=== PATIENT | female | born 1975 | race Caucasian/White ===

== ENCOUNTER 2019-05-24 09:13 | Day surgery (SDC) | payer OTHER ==
[2019-05-24] MEDS ORDERED: Xylocaine 1% Vial 30 ML PF IJ ONE (09:14)
[2019-05-24] MEDS ORDERED: Decadron 4 MG INJ IV ONE (09:14)
[2019-05-24] MEDS ORDERED: Ketamine HCl 50 MG/ML ONE (10:35)
[2019-05-24] MEDS ORDERED: DIPRIVAN 200 MG/20 ML IV ONE (10:35)
--- NOTE | 2019-05-24 12:14 | XRAY ---
Indication: Right piriformis injection. Intraoperative fluoroscopy was provided for 17 seconds. Single digital spot image submitted for interpretation demonstrates needle tip projecting over the expected right piriformis. Small amount of contrast injected for needle tip placement. Correlate with intraoperative findings/report.
--- NOTE | 2019-05-24 12:18 | XRAY ---
17 seconds fluoroscopy time in surgery for right piriformis injection.
[2019-05-24] MEDS ORDERED: Lactated Ringers 1,000 ML IV ONE (12:49)
== END 2019-05-24 11:00 | disposition home or self-care (01) ==
LOC: SDC-PAIN 09:13
PROVIDERS: ATTEND Psychiatry & Neurology Pain Medicine
DX: M79.18 Myalgia, other site (principal); I10 Essential (primary) hypertension; F41.8 Other specified anxiety disorders; Z79.899 Other long term (current) drug therapy
CPT/HCPCS: 20552; 72020; 77002; 84703; J1100; J2001; J2704; Q9966

== ENCOUNTER 2019-12-20 11:54 | Day surgery (SDC) | payer OTHER ==
[2019-12-20] MEDS ORDERED: Decadron 4 MG INJ IV ONE (11:55)
[2019-12-20] MEDS ORDERED: Xylocaine 1% Vial 30 ML PF IJ ONE (11:55)
[2019-12-20] MEDS ORDERED: DIPRIVAN 200 MG/20 ML IV ONE (13:11)
[2019-12-20] MEDS ORDERED: Ketamine HCl 50 MG/ML ONE (13:11)
[2019-12-20] MEDS ORDERED: Lactated Ringers 1,000 ML IV ONE (13:50)
--- NOTE | 2019-12-20 14:07 | XRAY ---
Indication: Bilateral piriformis injections. Intraoperative fluoroscopy was provided for 35 seconds. 3 digital spot images submitted for interpretation demonstrates posterior needle tip projecting over the expected left and right piriformis muscle. Small amount of contrast injected for both needle tip placement. Correlate with intraoperative findings/report. Incidental IUD.
--- NOTE | 2019-12-20 14:17 | XRAY ---
35 seconds fluoroscopy time in surgery for bilateral piriformis muscle injections.
== END 2019-12-20 13:42 | disposition home or self-care (01) ==
LOC: SDC-PAIN 11:54
PROVIDERS: ATTEND Psychiatry & Neurology Pain Medicine
DX: M79.18 Myalgia, other site (principal); I10 Essential (primary) hypertension; F41.8 Other specified anxiety disorders; Z79.899 Other long term (current) drug therapy
CPT/HCPCS: 20552; 72202; 77002; 84703; J1100; J2001; J2704; Q9966

== ENCOUNTER 2020-06-12 12:03 | Day surgery (SDC) | payer OTHER ==
[~2020-06-12 12:03] MED LIST: DIPRIVAN 200 MG/20 ML IV ONE; Ketamine HCl 50 MG/ML ONE
[2020-06-12] MEDS ORDERED: Depo-Medrol 40 MG/ML IM ONE (12:04)
[2020-06-12] MEDS ORDERED: BUPIVACAINE 0.5% VIAL IJ ONE (12:04)
--- NOTE | 2020-06-12 15:14 | XRAY ---
Indication: Bilateral L4-S1 MBB. Intraoperative fluoroscopy was provided for 8 seconds. Single digital spot image submitted for interpretation demonstrates posterior needle tips projecting over the expected left and right L4-S1 nerve roots. Correlate with intraoperative findings/report.
--- NOTE | 2020-06-12 15:26 | XRAY ---
8 seconds fluoroscopy time in surgery for bilateral L4-S1 MBB.
[2020-06-12] MEDS ORDERED: Lactated Ringers 1,000 ML IV ONE (16:50)
== END 2020-06-12 14:45 | disposition home or self-care (01) ==
LOC: SDC-PAIN 12:03
PROVIDERS: ATTEND Psychiatry & Neurology Pain Medicine
DX: M47.816 Spondylosis without myelopathy or radiculopathy, lumbar region (principal); I10 Essential (primary) hypertension; M35.2 Behcet's disease; F41.8 Other specified anxiety disorders; Z79.899 Other long term (current) drug therapy
CPT/HCPCS: 64493; 64494; 72020; 77002; 84703; J1030; J2704

== ENCOUNTER 2020-10-09 13:43 | Day surgery (SDC) | payer OTHER ==
[2020-10-09] MEDS ORDERED: XYLOCAINE-MPF 1% 5ML SDV IJ ONE (13:44)
[2020-10-09] MEDS ORDERED: Depo-Medrol 40 MG/ML IM ONE (13:44)
[2020-10-09] MEDS ORDERED: BUPIVACAINE 0.5% VIAL IJ ONE (13:44)
[2020-10-09] MEDS ORDERED: Ketamine HCl 50 MG/ML ONE (15:06)
[2020-10-09] MEDS ORDERED: DIPRIVAN 200 MG/20 ML IV ONE (15:06)
[2020-10-09] MEDS ORDERED: Lactated Ringers 1,000 ML IV ONE (16:37)
--- NOTE | 2020-10-09 16:50 | XRAY ---
34 seconds fluoroscopy time in surgery for right L4-S1 RFA.
--- NOTE | 2020-10-09 16:50 | XRAY ---
Indication: Right L4-S1 RFA. Intraoperative fluoroscopy provided for 34 seconds. 3 digital spot images submitted for interpretation demonstrate posterior needle tips projecting over the expected right L4-S1 nerve roots. Correlate with intraoperative findings/report.
== END 2020-10-09 15:42 | disposition home or self-care (01) ==
LOC: SDC-PAIN 13:43
PROVIDERS: ATTEND Psychiatry & Neurology Pain Medicine
DX: M47.816 Spondylosis without myelopathy or radiculopathy, lumbar region (principal); I10 Essential (primary) hypertension; F41.8 Other specified anxiety disorders; Z79.899 Other long term (current) drug therapy
CPT/HCPCS: 64635; 64636; 72100; 77002; 84703; J1030; J2704

== ENCOUNTER 2020-11-27 12:29 | Day surgery (SDC) | payer OTHER ==
[2020-11-27] MEDS ORDERED: Xylocaine 1% Vial 30 ML PF IJ ONE (12:30)
[2020-11-27] MEDS ORDERED: Depo-Medrol 40 MG/ML IM ONE (12:30)
[2020-11-27] MEDS ORDERED: BUPIVACAINE 0.5% VIAL IJ ONE (12:30)
[2020-11-27] MEDS ORDERED: DIPRIVAN 200 MG/20 ML IV ONE ×2 (14:31→14:38)
[2020-11-27] MEDS ORDERED: Lactated Ringers 1,000 ML IV ONE (16:13)
--- NOTE | 2020-11-27 16:37 | XRAY ---
Indication: Left L4-S1 RFA. Intraoperative fluoroscopy provided for 24 seconds. 4 digital spot images submitted for interpretation demonstrates posterior needle tips projecting over the expected left L4-S1 nerve roots. Correlate with intraoperative findings/report.
--- NOTE | 2020-11-27 16:48 | XRAY ---
24 seconds fluoroscopy time in surgery for left L4-S1 RFA.
== END 2020-11-27 15:06 | disposition home or self-care (01) ==
LOC: SDC-PAIN 12:29
PROVIDERS: ATTEND Psychiatry & Neurology Pain Medicine
DX: M47.817 Spondylosis without myelopathy or radiculopathy, lumbosacral region (principal); I10 Essential (primary) hypertension; F41.8 Other specified anxiety disorders; Z79.899 Other long term (current) drug therapy
CPT/HCPCS: 64635; 64636; 72100; 77002; 84703; J1030; J2001; J2704

== ENCOUNTER 2022-02-11 12:55 | Day surgery (SDC) | payer OTHER ==
[2022-02-11] MEDS ORDERED: XYLOCAINE-MPF 1% 5ML SDV IJ ONE (12:56)
[2022-02-11] MEDS ORDERED: Depo-Medrol 40 MG/ML IM ONE (12:56)
[2022-02-11] MEDS ORDERED: Marcaine Mpf 0.5% Vial 30 Ml IJ ONE (12:56)
[2022-02-11] MEDS ORDERED: DIPRIVAN 200 MG/20 ML IV ONE (14:26)
[2022-02-11] MEDS ORDERED: Lactated Ringers 1,000 ML IV ONE (15:59)
--- NOTE | 2022-02-12 18:31 | XRAY ---
27 seconds of fluoroscopy was used in surgery for a right L4-S1 RFA.
--- NOTE | 2022-02-13 21:28 | XRAY ---
Indication: Right L4-S1 RFA. Intraoperative fluoroscopy provided for 27 seconds. 3 digital spot images submitted for interpretation demonstrates posterior needle tips projecting over the expected right L4-S1 nerve roots. Correlate with intraoperative findings/report.
== END 2022-02-11 14:47 | disposition home or self-care (01) ==
LOC: SDC-PAIN 12:55
PROVIDERS: ATTEND Psychiatry & Neurology Pain Medicine
DX: M47.816 Spondylosis without myelopathy or radiculopathy, lumbar region (principal); E11.9 Type 2 diabetes mellitus without complications; Z79.899 Other long term (current) drug therapy
CPT/HCPCS: 64635; 64636; 72100; 77002; 81025; 82947; J1030; J2704

== ENCOUNTER 2022-02-18 12:57 | Day surgery (SDC) | payer OTHER ==
[2022-02-18] MEDS ORDERED: Marcaine Mpf 0.5% Vial 30 Ml IJ ONE (12:58)
[2022-02-18] MEDS ORDERED: XYLOCAINE-MPF 1% 5ML SDV IJ ONE (12:58)
[2022-02-18] MEDS ORDERED: Depo-Medrol 40 MG/ML IM ONE (12:58)
[2022-02-18] MEDS ORDERED: DIPRIVAN 200 MG/20 ML IV ONE ×2 (14:41→14:51)
[2022-02-18] MEDS ORDERED: Lactated Ringers 1,000 ML IV ONE (15:25)
--- NOTE | 2022-02-18 17:08 | XRAY ---
Indication: Left L4-S1 RFA. Intraoperative fluoroscopy provided for 26 seconds. 3 digital spot images submitted for interpretation demonstrate posterior needle tips projecting over the expected left L4-S1 nerve roots. Correlate with intraoperative findings/report.
--- NOTE | 2022-02-18 17:15 | XRAY ---
26 seconds of fluoroscopy was used in surgery for a left L4-S1 RFA.
== END 2022-02-18 15:12 | disposition home or self-care (01) ==
LOC: SDC-PAIN 12:57
PROVIDERS: ATTEND Psychiatry & Neurology Pain Medicine
DX: M47.816 Spondylosis without myelopathy or radiculopathy, lumbar region (principal); E11.9 Type 2 diabetes mellitus without complications; Z79.899 Other long term (current) drug therapy
CPT/HCPCS: 64635; 64636; 72100; 77002; 81025; 82947; J1030; J2704

== ENCOUNTER 2022-05-20 08:06 | Day surgery (SDC) | payer OTHER ==
[2022-05-20] MEDS ORDERED: Depo-Medrol 40 MG/ML IM ONE (08:07)
[2022-05-20] MEDS ORDERED: Marcaine Mpf 0.5% Vial 30 Ml IJ ONE (08:07)
[2022-05-20] MEDS ORDERED: DIPRIVAN 200 MG/20 ML IV ONE (09:36)
[2022-05-20] MEDS ORDERED: Lactated Ringers 1,000 ML IV ONE (10:17)
--- NOTE | 2022-05-20 11:26 | XRAY ---
Indication: Right hip and right greater trochanter bursa injections. Intraoperative fluoroscopy provided for 20 seconds. 2 digital spot image submitted for interpretation demonstrates needle tip projecting lateral to the right femur neck. Second needle tip lateral to the greater trochanter. Small amount of contrast injected for both needle tip placement. Correlate with intraoperative findings/report.
--- NOTE | 2022-05-20 13:23 | XRAY ---
20 seconds of fluoroscopy was used in surgery for a right hip greater trochanteric bursa and intra-articular injections.
== END 2022-05-20 10:00 | disposition home or self-care (01) ==
LOC: SDC-PAIN 08:06
PROVIDERS: ATTEND Psychiatry & Neurology Pain Medicine
DX: M16.11 Unilateral primary osteoarthritis, right hip (principal); M70.61 Trochanteric bursitis, right hip; E11.9 Type 2 diabetes mellitus without complications; Z79.899 Other long term (current) drug therapy
CPT/HCPCS: 20610; 73502; 77002; 81025; 82947; J1030; J2704

== ENCOUNTER 2022-09-09 13:18 | Day surgery (SDC) | payer OTHER ==
[2022-09-09] MEDS ORDERED: Decadron 4 MG INJ IV ONE (13:19)
[2022-09-09] MEDS ORDERED: LIDOCAINE HCL 1% 50 MG/5 ML VL PF IJ ONE (13:19)
[2022-09-09] MEDS ORDERED: Lactated Ringers 1,000 ML IV ONE (16:13)
--- NOTE | 2022-09-09 17:18 | XRAY ---
Indication: Right piriformis injection. Intraoperative fluoroscopy provided for 18 seconds. Single digital spot image submitted for interpretation demonstrates posterior needle tip projecting over the expected right piriformis muscle. Small amount of contrast injected for needle tip placement. Correlate with intraoperative findings/report.
--- NOTE | 2022-09-10 08:30 | XRAY ---
18 seconds of fluoroscopy was used in surgery for a right piriformis injection.
== END 2022-09-09 16:35 | disposition home or self-care (01) ==
LOC: SDC-PAIN 13:18
PROVIDERS: ATTEND Psychiatry & Neurology Pain Medicine
DX: M79.18 Myalgia, other site (principal); E11.9 Type 2 diabetes mellitus without complications; Z79.899 Other long term (current) drug therapy
CPT/HCPCS: 20552; 72170; 77002; 81025; 82947; J1100; J2001; Q9966

== ENCOUNTER 2023-06-03 07:50 | Day surgery (SDC) | payer OTHER ==
[2023-06-03] MEDS ORDERED: XYLOCAINE 1% HCL 20 ML MDV IJ ONE (07:51)
[2023-06-03] MEDS ORDERED: BUPIVACAINE 0.5% VIAL IJ ONE (07:51)
[2023-06-03] MEDS ORDERED: Depo-Medrol 40 MG/ML IM ONE (07:51)
[2023-06-03 08:03] LABS: HCG URINE TEST NEGATIVE (NEGATIVE)
[2023-06-03] MEDS ORDERED: DIPRIVAN 200 MG/20 ML IV ONE ×2 (09:04→09:13)
[2023-06-03] MEDS ORDERED: Lactated Ringers 1,000 ML IV ONE (09:17)
--- NOTE | 2023-06-03 10:58 | XRAY ---
Indication: Right L4-S1 RFA. Intraoperative fluoroscopy provided for 25 seconds. 5 digital spot images submitted for interpretation demonstrates posterior needle tips projecting over the expected right L4-S1 nerve roots. Correlate with intraoperative findings/report.
--- NOTE | 2023-06-03 12:33 | XRAY ---
25 seconds of fluoroscopy was used in surgery for a right L4-S1 RFA.
== END 2023-06-03 09:38 | disposition home or self-care (01) ==
LOC: SDC-PAIN 07:50
PROVIDERS: ATTEND Psychiatry & Neurology Pain Medicine
DX: M47.816 Spondylosis without myelopathy or radiculopathy, lumbar region (principal); E11.9 Type 2 diabetes mellitus without complications
CPT/HCPCS: 64635; 64636; 72100; 77002; 81025; 82947; J1030; J2704

== ENCOUNTER 2023-06-09 07:45 | Day surgery (SDC) | payer OTHER ==
[2023-06-09] MEDS ORDERED: LIDOCAINE HCL 1% 50 MG/5 ML VL PF IJ ONE (07:46)
[2023-06-09] MEDS ORDERED: BUPIVACAINE 0.5% VIAL IJ ONE (07:46)
[2023-06-09] MEDS ORDERED: Depo-Medrol 40 MG/ML IM ONE (07:46)
[2023-06-09 08:17] LABS: HCG URINE TEST NEGATIVE (NEGATIVE)
[2023-06-09] MEDS ORDERED: Versed 2 MG/2 ML Injection ONE (09:28)
[2023-06-09] MEDS ORDERED: DIPRIVAN 200 MG/20 ML IV ONE (09:28)
[2023-06-09] MEDS ORDERED: Lactated Ringers 1,000 ML IV ONE (09:48)
--- NOTE | 2023-06-09 10:27 | XRAY ---
Indication: Left L4-S1 RFA. Intraoperative fluoroscopy provided for 19 seconds. 4 digital spot images submitted for interpretation demonstrates posterior needle tips projecting over the expected left L4-S1 nerve roots. Correlate with intraoperative findings/report.
--- NOTE | 2023-06-09 11:44 | XRAY ---
19 seconds of fluoroscopy was used in surgery for a left L4-S1 RFA.
== END 2023-06-09 10:05 | disposition home or self-care (01) ==
LOC: SDC-PAIN 07:45
PROVIDERS: ATTEND Psychiatry & Neurology Pain Medicine
DX: M47.816 Spondylosis without myelopathy or radiculopathy, lumbar region (principal); E11.9 Type 2 diabetes mellitus without complications
CPT/HCPCS: 64635; 64636; 72100; 77002; 81025; 82947; J1030; J2001; J2250; J2704